=== PATIENT | male | born 1995 | race Caucasian/White ===

== ENCOUNTER 2019-02-22 14:07 | Emergency (ER) | payer BC ==
--- NOTE | 2019-02-22 15:39 | ED ---
Complex/Multi-Sys Presentation - HPI Summary HPI Summary: 23-year-old male with no significant past medical history reports the emergency department today complaining of feeling disoriented and complaining of carpal spasm, fast heart rate, "having odd feeling in face and chest earlier".. He attributes his symptoms to taking 40 mg of Adderall last night at around 7 PM and another 20 mg this morning at 7 AM. Patient states she consumed marijuana and had "a lot of caffeine last evening"as he was trying to stay up to study for a test. Patient states he got 0 sleep last evening. Patient states she also feels nauseous. Patient believes his symptoms are resolving however he wanted to be checked out. Patient believes "a couple days ago I think I had a fever". Patient denies recent alcohol use or other recreational drug use other than marijuana, patient denies smoking. Patient denies shortness of breath, abdominal pain count and urination, rash, changes in vision, headache, bloody bowel movements. - History Of Current Complaint Chief Complaint: EDPsychosocial Time Seen by Provider: 02/22/19 15:38 Hx Obtained From: Patient - I alright for a little while I watched the child narco and abdomen is an emaciated or Onset/Duration: Lasting Hours Timing: Constant Severity Currently: Moderate Severity Initially: Mild Associated Signs And Symptoms: Positive: Confusion, Nausea - Allergies/Home Medications Allergies/Adverse Reactions: Allergies Allergy/AdvReac Type Severity Reaction Status Date / Time No Known Allergies Allergy Verified 02/22/19 14:23 Home Medications: Home Medications NK [No Home Medications Reported] 02/22/19 [History Confirmed 02/22/19] PMH/Surg Hx/FS Hx/Imm Hx Infectious Disease History: No Infectious Disease History: Denies: Traveled Outside the [place] in Last 30 Days Review of Systems Constitutional: Negative Eyes: Negative ENT: Negative Positive: Palpitations Respiratory: Negative Gastrointestinal: Negative Genitourinary: Negative Positive: Myalgia Skin: Negative Positive: Paresthesia Psychological: Normal All Other Systems Reviewed And Are Negative: Yes Physical Exam Triage Information Reviewed: Yes Vital Signs On Initial Exam: Initial Vitals Temp Pulse Resp BP Pulse Ox 99.1 F 92 16 137/87 100 02/22/19 14:14 02/22/19 14:14 02/22/19 14:14 02/22/19 14:14 02/22/19 14:14 Vital Signs Reviewed: Yes Appearance: Positive: Well-Appearing, No Pain Distress, Well-Nourished Skin: Positive: Warm, Skin Color Reflects Adequate Perfusion Eyes: Positive: EOMI, KASIA ENT: Positive: Hearing grossly normal Respiratory/Lung Sounds: Positive: Clear to Auscultation, Breath Sounds Present Cardiovascular: Positive: RRR, S1, S2 Abdomen Description: Positive: Nontender, Soft Bowel Sounds: Positive: Present Musculoskeletal: Positive: Strength/ROM Intact Neurological: Positive: Sensory/Motor Intact, Alert, Oriented to Person Place, Time, Normal Gait, Facial Symmetry, Speech Normal Psychiatric: Positive: Normal AVPU Assessment: Alert Procedures - Sedation Patient Received Moderate/Deep Sedation with Procedure: No Diagnostics - Vital Signs Vital Signs Temp Pulse Resp BP Pulse Ox 02/22/19 14:14 99.1 F 92 16 137/87 100 - Laboratory Result Diagrams: 02/22/19 16:03 02/22/19 16:03 Lab Statement: Any lab studies that have been ordered have been reviewed, and results considered in the medical decision making process. Complex Multi-Symp Course/Dx Course Of Treatment: Patient was evaluated in the emergency department today for symptoms associated with Adderall use. Patient was seen and examined vitals are stable he is afebrile. In EKG was done and showed normal sinus rhythm at a rate of 76 bpm. There is normal WI and QTc interval. There is no evidence of Brugada or WPW. No ST elevation or signs of ischemia. Labs showed no leukocytosis or decreasing renal function. He does have mild hypokalemia 3.2 , and hypomagnesemia at 1.8. he is given by mouth replacement of potassium and magnesium and discharged. There appeared to be no significant sequela of Adderall use and he was told to follow-up with his [facility] for further evaluation and management of his symptoms in 3 days. He was told to return to the emergency department immediately if he developed any new or worsening symptoms. - Diagnoses Provider Diagnoses: Drug use, Palpitation Discharge ED - Sign-Out/Discharge Documenting (check all that apply): Patient Departure - Discharge Plan Condition: Stable Disposition: HOME Patient Education Materials: Heart Palpitations (ED), Paresthesia (ED) Referrals: [facility] - Markie SAUNDERS [Primary Care Provider] - 2 Days () Additional Instructions: You were seen in the emergency department today due to side effects from taking high doses of Adderall, coffee, smoking marijuana. An EKG was done in the emergency department which showed nothing abnormal with your heart and laboratory studies were done which showed no serious abnormalities other than minor electrolyte abnormalities which wee replaced in the emergency department. Please return to the emergency department immediately if you develop any new or worsening symptoms. Please follow-up with your [facility] in 2-3 days for further evaluation and management of your symptoms. Please refrain from taking substances not prescribed to in the future. - Billing Disposition and Condition Condition: STABLE Disposition: Home - Attestation Statements Provider Attestation: I was available for consult. This patient was seen by the SHERIF. The patient was not presented to, seen by, or examined by me. Fransisco Fregoso MD
[2019-02-22 16:26] LABS: ABS Basophils 0.1 10^3/ul (0-0.2); ABS Lymphocytes 2.2 10^3/ul (1.0-4.8); ABS Neutrophils 7.1 10^3/ul (1.5-7.7); Eosinophil % 0.2 %; Hematocrit 42 % (42-52); Hemoglobin 14.9 g/dL (14.0-18.0); Lymphocyte % 21.5 %; Mean Corpuscular HGB Conc 35 g/dL (31-36); Mean Corpuscular Hemoglobin 31 pg (27-31); Mean Corpuscular Volume 87 fL (80-94); Mean Platelet Volume 7.9 fL (7.4-10.4); Platelet Count 363 10^3/uL (150-450); Red Blood Count 4.87 10^6 /uL (4.18-5.48); Red Cell Distribution Width 13 % (10-15); White Blood Count 10.5 10^3/uL (3.5-10.8)
[2019-02-22 16:41] LABS: Albumin 4.9 g/dL (3.2-5.2); Calcium 10.1 mg/dL (8.6-10.3); Magnesium 1.8 mg/dL (1.9-2.7); Potassium 3.2 mmol/L (3.5-5.0); Total Bilirubin 1.2 mg/dL (0.2-1.0)
[2019-02-22] MEDS ORDERED: Magnesium Chloride EC TAB* 64 MG PO ONE (16:45)
[2019-02-22] MEDS ORDERED: Potassium Chlor TAB* 20 MEQ TAB.ER PO ONE (16:45)
[2019-02-22 16:47] LABS: BUN/Creatinine Ratio 12.5 (8-20); EGFR African American 147.7 (>60); Globulin 2.4 g/dL (2-4); Total Protein 7.3 g/dL (6.4-8.9)
[2019-02-22 17:26] VITALS: BP 127/87
== END 2019-02-22 17:24 | disposition home or self-care (01) ==
LOC: ED 14:07
DX: R00.2 Palpitations (principal); R11.0 Nausea; T43.625A Adverse effect of amphetamines, initial encounter; Y92.9 Unspecified place or not applicable
CPT/HCPCS: 36415; 80053; 83735; 84484; 85025; 93005; 99282; A9270-GY